=== PATIENT | female | born 1955 | race Caucasian/White ===

== ENCOUNTER 2020-10-27 22:54 | Inpatient (IN) | payer BC, MEDICARE ==
[~2020-10-27] VITALS: Ht 170.2 cm; Wt 73.0 kg
[2020-10-27] MEDS ORDERED: VENTOLIN HFA 66.7 GM INH (23:21)
[2020-10-27] MEDS ORDERED: DOXYCYCLINE HY100 M2 PO (23:22)
[2020-10-27] MEDS ORDERED: MEDROL4 MG PO (23:23)
[2020-10-27] MEDS ORDERED: MEDROL DOSEPAK 24 MG PO (23:24)
[2020-10-27] MEDS ORDERED: METHOTREXATE T2.5 MG PO (23:25)
[2020-10-27] MEDS ORDERED: FOLIC ACID 1 MG1 MG PO (23:26)
[2020-10-27 23:43] LABS: HEMOGLOBIN 15.7 gm/dl (12.3-15.3); RED BLOOD COUNT 4.79 M/UL (4.00-5.10); WHITE BLOOD COUNT 7.6 K/UL (4.5-11.0)
[2020-10-28 00:26] LABS: BUN/CREATININE RATIO 32 (0-10)
[2020-10-29 02:26] LABS: RED BLOOD COUNT 4.08 M/UL (4.00-5.10); WHITE BLOOD COUNT 4.8 K/UL (4.5-11.0)
[2020-10-29 03:04] LABS: BUN/CREATININE RATIO 24 (0-10)
[2020-10-30 06:32] LABS: HEMOGLOBIN 13.4 gm/dl (12.3-15.3); RED BLOOD COUNT 4.26 M/UL (4.00-5.10); WHITE BLOOD COUNT 5.2 K/UL (4.5-11.0)
[2020-10-30 06:56] LABS: BUN/CREATININE RATIO 27 (0-10)
[2020-10-31 02:17] LABS: HEMOGLOBIN 13.4 gm/dl (12.3-15.3); RED BLOOD COUNT 4.24 M/UL (4.00-5.10); WHITE BLOOD COUNT 4.9 K/UL (4.5-11.0)
[2020-10-31 02:44] LABS: BUN/CREATININE RATIO 35 (0-10)
[2020-11-01 02:35] LABS: RED BLOOD COUNT 4.08 M/UL (4.00-5.10)
[2020-11-01 03:04] LABS: BUN/CREATININE RATIO 38 (0-10)
[2020-11-01] MEDS ORDERED: DEXAMETHASONE2 MG PO ×2 (13:16→13:24)
== END 2020-11-01 14:49 | disposition home or self-care (01) | DRG 871 ==
LOC: ER1 22:54 → ZEROF 10-28 01:12 → MED SURG 4 10-28 01:12
PROVIDERS: Emergency Medicine; Internal Medicine; ADMIT Internal Medicine
PROC: XW033E5 Introduction of Remdesivir Anti-infective into Peripheral Vein, Percutaneous Approach, New Technology Group 5 (ICD-10-PCS; principal; 2020-10-28)
PROC: 8E0ZXY6 Isolation (ICD-10-PCS; 2020-10-28)
DX: A41.89 Other specified sepsis (principal); U07.1 COVID-19; J12.89 Other viral pneumonia; J96.01 Acute respiratory failure with hypoxia; M06.9 Rheumatoid arthritis, unspecified; F41.9 Anxiety disorder, unspecified; Z79.899 Other long term (current) drug therapy; Z88.5 Allergy status to narcotic agent
CPT/HCPCS: 36415; 36600; 71045; 80053; 82550; 82553; 82803; 82962; 83605; 83690; 83735; 83874; 84484; 85025; 85610; 85730; 86140; 87040; 93005; 94664; 94760; 96365; 96366; 96367; 96372; 96375; 96376; 99285; J0456; J0696; J1100; J1650; J7030; J8610; U0002